=== PATIENT | female | born 1985 | race Caucasian/White ===

== ENCOUNTER 2021-08-20 06:12 | Inpatient (IN) | payer OTHER ==
[2021-08-20] VITALS (47 sets, daily range): BP systolic 93–140; BP diastolic 53–84
[~2021-08-20] VITALS: Ht 172.7 cm; Wt 118.5 kg
[2021-08-20] MEDS ORDERED: MINERAL OIL CONCENTRATE 99.9% 15 ML UDC TOP PRN (06:30)
--- NOTE | 2021-08-20 06:36 | History & Physical-OB ---
OB - Chief Complaint & HPI Date/Time Date of Admission: Date of Admission: Aug 20, 2021 at 06:12 Date seen by a Provider: Aug 20, 2021 Time Seen by a Provider: 08:40 Chief Complaint/History OB-Reason for Admission/Chief: Induction of Labor Hx : 3 Hx Para: 2 Expected Date of Delivery: Aug 22, 2021 Gestational Age in Weeks: 39 Gestational Age in Days: 5 Indication for induction: history of rapid labor History of Labs A+, antibody neg, RI. HIV/HepB/RPR NR, GC/chlamydia neg. 1 hour glucola abnormal, 3 hour normal. GBS neg. Allergies and Home Medications Allergies Coded Allergies: Penicillins (Verified Allergy, Unknown, hives, 08/20/21) Patient Home Medication List Home Medication List Reviewed: Yes Mecobalamin (B12 Active) 1,000 Mcg Tab.chew, 1,000 MCG PO DAILY, (Reported) Entered as Reported by: MAXX WILKINS on 08/20/21724 Last Action: New Order Vit W-Ca,Fe,FA(<1 mg) ( Formula) 1 Each Tablet, 1 EACH PO DAILY, (Reported) Entered as Reported by: MAXX WILKINS on 08/20/21723 Last Action: New Order Psyllium Husk/Aspartame (Metamucil Powder) 174 Gm Powder, 174 GM PO DAILY, (Reported) Entered as Reported by: MAXX WILKINS on 08/20/21724 Last Action: New Order OB - History Hx of Present Care: Yes Ultrasounds: Normal mid trimester US Obstetrical Complications: None Medical Complications: None Information Induced Hypertension: No Maternal Gestational Diabetes: No Hemorrhage: No Obstetrical History Hx : 3 Hx Para: 2 Hx # Term Pregnancies: 2 Hx # Pregnancies: 0 Number of Living Children: 2 Hx Multiple Gestation: No Hx Ectopic : No Hx Stillbirth: No Hx Complication: No Hx Induced Hypertens: No Hx Maternal Gestational Diabet: No Hx Hemorrhage: No Delivery History Hx Dystocia: No Hx Forceps Assisted Delivery: No Hx Vacuum Extraction Assisted: No Hx Placenta Abnormality: No Hx Distress: No Hx Large For Gestational Age I: No Hx Small for Gestational Age I: No Hx Section: No Hx Vaginal Delivery Post C-Sec: No Hx Blood Disorders: No Adverse Rxn to Tranfusion: No Patient Past Medical History PMHx: Denies SurgHx: appendectomy Social History/Family History Alcohol Use: Denies Use Recreational Drug Use: No Smoking Cessation: Never smoker Immunizations Influenza Vaccine Up-to-Date: Yes; Up-to-Date (05/14/2021) First/Initial COVID19 Vaccine: Sep 15, 2020 Second COVID19 Vaccination: October 16, 2020 COVID19 Booster (Date): June 18, 2021 COVID19 Vaccine [employer]: Moderna Tetanus Booster (TDap): Less than 5yrs Rubella: immune RPR/VDRL: Negative GBS Status: Negative HBsAG: Negative OB - Admission Exam Physical Exam HEENT: NCAT Abdomen: Non tender Extremities: Normal Cervical Dilatation: 3cm Effacement: 0% Station: -3 Membranes: Intact Accelerations: Accelerations Present Decelerations: No Decelerations Group Home Variability: Average (6-25) Contractions on Admission: None Garcia Scoring Tool (Modified) Dilation (cm): 1-2cm (1) Effacement (%): 0-30% (0) Descent/Station: -3 (0) Cervix Consistency: Soft (2) Cervix Position: Middle/Mid-Position (1) Add 1 point for: Each previous vaginal delivery (1) (2) Garcia Score: 6 OB - Assessment/Plan/Diagnosis Assessment Admission Dx Term intrauterine at 39w5d Obesity complicated Blood type A+ Rubella immune GBS negative History of rapid labor Induction of labor planned Admission Status: Inpatient Order (span 2 midnights) Reason for Inpatient Admission: Labor, delivery and course Plan Plan: Induction Induction Method: per Pitocin Protocol TERI POWELL MD Aug 20, 2021 06:36
[2021-08-20 07:23] LABS: BASOPHILS % (AUTO) 0 % (0-10); EOSINOPHILS # (AUTO) 0.1 10^3/uL (0.0-0.3); EOSINOPHILS % (AUTO) 1 % (0-10); HEMATOCRIT 38 % (35-52); HEMOGLOBIN 12.7 g/dL (11.5-16.0); LYMPHOCYTES # (AUTO) 1.9 10^3/uL (1.0-4.0); LYMPHOCYTES % (AUTO) 15 % (12-44); MEAN CORPUSCULAR HEMOGLOBIN 28 pg (25-34); MEAN CORPUSCULAR HGB CONC 33 g/dL (32-36); MEAN CORPUSCULAR VOLUME 84 fL (80-99); MEAN PLATELET VOLUME 10.3 fL (9.0-12.2); MONOCYTES # (AUTO) 1.2 10^3/uL (0.0-1.0); MONOCYTES % (AUTO) 10 % (0-12); NEUTROPHILS # (AUTO) 9.6 10^3/uL (1.8-7.8); NEUTROPHILS % (AUTO) 74 % (42-75); PLATELET COUNT 335 10^3/uL (130-400); WHITE BLOOD COUNT 13.1 10^3/uL (4.3-11.0)
[2021-08-20] MEDS ORDERED: PREN-8 PO (07:24)
[2021-08-20] MEDS ORDERED: MECO10005 PO (07:25)
[2021-08-20] MEDS ORDERED: PSYL174P2 PO (07:25)
[2021-08-20] MEDS: OXYTOCIN PRE-MIX DRIP 500 ML IV SCH (07:56)
[2021-08-20] MEDS: D5 LR IV SOLUTION 1,000 ML IV SCH ×3 (08:09→21:40)
[2021-08-20] MEDS ORDERED: CATHETER FLUSH 10 ML SYR IV SCH (14:00)
[2021-08-21] VITALS (29 sets, daily range): BP systolic 100–159; BP diastolic 53–94
[2021-08-21] MEDS: D5 LR IV SOLUTION 1,000 ML IV SCH (06:58)
[2021-08-21] MEDS: OXYTOCIN PRE-MIX DRIP 500 ML IV SCH (06:58)
[2021-08-21] MEDS ORDERED: fentaNYL 2 mcg/ml BUPIVA 0.125 100 ML ONE (08:38)
[2021-08-21] MEDS ORDERED: LACTATED RINGERS 1,000 ML IV ONE (08:38)
--- NOTE | 2021-08-21 08:43 | Labor Progress Note ---
Labor Progress Note Labor Progress Note Date Seen by Provider: Aug 21, 2021 Time Seen by Provider: 08:30 Subjective: Pt denies complaints. Objective: Cervical exam: 5-6/60/-3 Consistency: soft Position: anterior Presentation: vertex heart tones: 140 beats per minute, moderate variability, accels present Tocometer: 3 ctx/10 minutes Assessment/Plan: Bia Álvarez is a (36 /Para 3 / 2,Gestational Age (wks)39+6 here for induction of labor. CEFM/TOCO Continue pitocin/AROM done with clear fluid return Anesthesia: planning epidural Anticipate vaginal delivery. Vitals - Labs Vital Signs - I&O Vital Signs Date Time Temp Pulse Resp B/P (MAP) Pulse Ox O2 Delivery O2 Flow Rate FiO2 08/21/21 06:00 18 Room Air 08/21/21 05:00 18 Room Air 08/21/21 04:00 18 Room Air 08/21/21 03:00 18 Room Air 08/21/21 02:00 18 Room Air 08/21/21 01:00 18 Room Air 08/21/21 00:00 18 Room Air 08/20/21 23:00 18 Room Air 08/20/21 22:00 71 18 119/56 (77) Room Air 08/20/21 21:00 36.2 80 18 140/78 (98) Room Air 08/20/21 20:00 97 18 117/62 (80) Room Air 08/20/21 19:00 Room Air 08/20/21 18:45 75 20 116/65 (82) Room Air 08/20/21 18:30 72 20 126/76 (93) Room Air 08/20/21 18:15 36.7 83 20 125/80 (95) Room Air 08/20/21 18:00 81 20 123/81 (95) Room Air 08/20/21 17:45 72 20 122/71 (88) Room Air 08/20/21 17:30 65 20 104/58 (73) Room Air 08/20/21 17:15 68 20 102/57 (72) Room Air 08/20/21 17:00 68 20 113/57 (75) Room Air 08/20/21 16:45 65 20 94/54 (67) Room Air 08/20/21 16:30 64 20 97/53 (68) Room Air 08/20/21 16:15 73 20 99/60 (73) Room Air 08/20/21 16:00 86 20 111/65 (80) Room Air 08/20/21 15:45 67 20 93/55 (68) Room Air 08/20/21 15:30 75 20 119/67 (84) Room Air 08/20/21 15:15 73 20 114/67 (83) Room Air 08/20/21 15:00 68 20 107/68 (81) Room Air 08/20/21 14:45 36.1 69 20 116/71 (86) Room Air 08/20/21 14:30 88 20 122/56 (78) Room Air 08/20/21 14:15 75 20 123/70 (87) Room Air 08/20/21 14:00 90 20 109/65 (80) Room Air 08/20/21 13:45 71 20 112/77 (89) Room Air 08/20/21 13:30 73 20 126/83 (97) Room Air 08/20/21 13:15 76 20 127/80 (96) Room Air 08/20/21 13:00 85 20 125/80 (95) Room Air 08/20/21 12:45 76 20 106/66 (79) Room Air 08/20/21 12:30 68 20 114/70 (85) Room Air 08/20/21 12:15 71 20 111/67 (82) Room Air 08/20/21 12:00 71 20 122/73 (89) Room Air 08/20/21 11:45 36.0 69 20 120/72 (88) Room Air 08/20/21 11:30 68 20 117/73 (88) Room Air 08/20/21 11:15 75 20 118/74 (89) Room Air 08/20/21 11:00 72 20 122/79 (93) Room Air 08/20/21 10:45 76 20 120/78 (92) Room Air 08/20/21 10:30 72 20 116/70 (85) Room Air 08/20/21 10:00 36.2 71 20 113/76 (88) Room Air 08/20/21 09:45 74 20 111/79 (90) Room Air 08/20/21 09:30 75 20 114/61 (78) Room Air 08/20/21 09:15 71 20 133/83 (100) Room Air 08/20/21 09:00 73 20 127/71 (89) Room Air 08/20/21 08:45 73 20 127/71 (89) Room Air I & O 08/21/21 07:00 Intake Total 1000 ml Balance 1000 ml TERI POWELL MD Aug 21, 2021 08:43
[2021-08-21] MEDS ORDERED: BUPIVACAINE 0.25% 30 ML (SENSORCAINE) VIAL ONE (09:26)
[2021-08-21] MEDS ORDERED: fentaNYL INJ 100 MCG/2 ML AMP ONE (09:26)
--- NOTE | 2021-08-21 10:54 | Anesthesia-Regional Post-Op ---
Regional Patient Condition Mental Status: Alert, Oriented x3 Circulation: Same as Pre-Op Headache: Absent Sensation: Full Recovery Motor Block: Absent Post Op Complications Complications None Follow Up Care/Instructions Patient Instructions None needed. Anesthesia/Patient Condition Patient is doing well, no complaints, stable vital signs, no apparent adverse anesthesia problems. No complications reported per nursing. OLU DODSON CRNA Aug 21, 2021 10:54
[2021-08-21] MEDS ORDERED: METOCLOPRAMIDE INJ 10 MG/2 ML (REGLAN) IV PRN (11:00)
[2021-08-21] MEDS ORDERED: EPIDURAL (fentaNYL 2 MCG/ML BUPIVA 0.125%)100 ML BAG EPI PRN (11:00)
[2021-08-21] MEDS ORDERED: NALOXONE 0.4 MG/ML 1 ML (NARCAN) VIAL IV PRN ×2 (11:00)
[2021-08-21] MEDS ORDERED: LACTATED RINGERS 1,000 ML IV SCH (11:00)
[2021-08-21] MEDS ORDERED: diphenhydrAMINE 50 MG/ML INJ (BENADRYL) IV PRN (11:00)
[2021-08-21] MEDS ORDERED: ONDANSETRON 4 MG/2 ML (SDV) Z0FRAN IV PRN (11:00)
--- NOTE | 2021-08-21 11:17 | OB Labor & Delivery Record ---
Vag Delivery Note Vag Delivery Note Date of Delivery: 08/21/21 Preoperative Diagnosis: Bia Álvarez is a (36 /Para 3 / 2, Gestational Age (wks)39with 6 days Postoperative Diagnosis: Same Surgeon: TERI POWELL Aerial Advertiser: Nicole Foy, OMS4 Anesthesia: Epidural Delivery Type: Findings: Viable female , apgars 7/9, weight 8#8 Lacerations: bilateral periurethral abrasions Intact placenta with 3 vessel cord. Nuchal cord x 1 easily reduced, body cord or shoulder dystocia Estimated Blood Loss: 350 ml Complications: None Condition: Stable Description of Procedure: The patient is a 36 year old female who presented for induction of labor. She was admitted and informed consent was obtained. Her labor course was remarkable for failure to achieve active labor on day 1, she rested overnight and restated pitocin the next morning. She progressed to complete dilatation and began to push. She was then set up for delivery. The infant's head was delivered atraumatically in the KAYCEE position. The shoulders and remainder of the 's body were then delivered without difficulty. Upon delivery, the was placed on maternal abdomen and the mouth and nares were bulb suctioned. The cord was doubly clamped and cut and the was handed off to the pediatric staff. An intact placenta with 3-vessel cord delivered via Sally and there was found to be minimal bleeding.~ Vigorous fundal massage was performed and the fundus was found to be firm. IV oxytocin was given. Examination of the vagina and perineum revealed no lacerations requiring repair. Following the delivery, sponge, instrument and needle counts were correct. Mom and baby were both in stable condition in the labor suite. Vitals - Labs Vital Signs - I&O Vital Signs Date Time Temp Pulse Resp B/P (MAP) Pulse Ox O2 Delivery O2 Flow Rate FiO2 08/21/21 08:00 76 18 137/77 (97) Room Air 08/21/21 07:45 36.0 69 18 111/71 (84) Room Air 08/21/21 07:30 69 18 111/71 (84) Room Air 08/21/21 07:15 62 18 121/76 (91) Room Air 08/21/21 06:00 18 Room Air 08/21/21 05:00 18 Room Air 08/21/21 04:00 18 Room Air 08/21/21 03:00 18 Room Air 08/21/21 02:00 18 Room Air 08/21/21 01:00 18 Room Air 08/21/21 00:00 18 Room Air 08/20/21 23:00 18 Room Air 08/20/21 22:00 71 18 119/56 (77) Room Air 08/20/21 21:00 36.2 80 18 140/78 (98) Room Air 08/20/21 20:00 97 18 117/62 (80) Room Air 08/20/21 19:00 Room Air 08/20/21 18:45 75 20 116/65 (82) Room Air 08/20/21 18:30 72 20 126/76 (93) Room Air 08/20/21 18:15 36.7 83 20 125/80 (95) Room Air 08/20/21 18:00 81 20 123/81 (95) Room Air 08/20/21 17:45 72 20 122/71 (88) Room Air 08/20/21 17:30 65 20 104/58 (73) Room Air 08/20/21 17:15 68 20 102/57 (72) Room Air 08/20/21 17:00 68 20 113/57 (75) Room Air 08/20/21 16:45 65 20 94/54 (67) Room Air 08/20/21 16:30 64 20 97/53 (68) Room Air 08/20/21 16:15 73 20 99/60 (73) Room Air 08/20/21 16:00 86 20 111/65 (80) Room Air 08/20/21 15:45 67 20 93/55 (68) Room Air 08/20/21 15:30 75 20 119/67 (84) Room Air 08/20/21 15:15 73 20 114/67 (83) Room Air 08/20/21 15:00 68 20 107/68 (81) Room Air 08/20/21 14:45 36.1 69 20 116/71 (86) Room Air 08/20/21 14:30 88 20 122/56 (78) Room Air 08/20/21 14:15 75 20 123/70 (87) Room Air 08/20/21 14:00 90 20 109/65 (80) Room Air 08/20/21 13:45 71 20 112/77 (89) Room Air 08/20/21 13:30 73 20 126/83 (97) Room Air 08/20/21 13:15 76 20 127/80 (96) Room Air 08/20/21 13:00 85 20 125/80 (95) Room Air 08/20/21 12:45 76 20 106/66 (79) Room Air 08/20/21 12:30 68 20 114/70 (85) Room Air 08/20/21 12:15 71 20 111/67 (82) Room Air 08/20/21 12:00 71 20 122/73 (89) Room Air 08/20/21 11:45 36.0 69 20 120/72 (88) Room Air 08/20/21 11:30 68 20 117/73 (88) Room Air 08/20/21 11:15 75 20 118/74 (89) Room Air I & O 08/21/21 07:00 Intake Total 1000 ml Balance 1000 ml TERI POWELL MD Aug 21, 2021 11:17
[2021-08-21] MEDS ORDERED: WITCH HAZEL(TUCKS) 40 EA JAR TOP PRN (11:45)
[2021-08-21] MEDS ORDERED: BENZOCAINE/MENTHOL (DERMOPLAST) 56 ML CAN TP PRN (11:45)
[2021-08-21] MEDS ORDERED: OXYTOCIN PRE-MIX DRIP 500 ML IV SCH (11:45)
[2021-08-21] MEDS ORDERED: CATHETER FLUSH 10 ML SYR IV SCH (14:00)
[2021-08-21] MEDS: IBUPROFEN 600 MG (MOTRIN) TAB PO SCH (18:53)
[2021-08-22] MEDS: DOCUSATE SODIUM 100 MG (COLACE) CAP PO SCH ×2 (00:27→10:28)
[2021-08-22] MEDS: IBUPROFEN 600 MG (MOTRIN) TAB PO SCH ×3 (00:27→13:36)
[2021-08-22] MEDS ORDERED: IBUP-844 PO (04:53)
[2021-08-22 05:11] VITALS: BP 116/72
[2021-08-22] MEDS ORDERED: PRENATAL VITAMIN 1 EA TAB PO SCH (07:00)
[2021-08-22 07:28] LABS: BASOPHILS # (AUTO) 0.1 10^3/uL (0.0-0.1); BASOPHILS % (AUTO) 0 % (0-10); EOSINOPHILS # (AUTO) 0.1 10^3/uL (0.0-0.3); EOSINOPHILS % (AUTO) 1 % (0-10); HEMATOCRIT 33 % (35-52); HEMOGLOBIN 10.8 g/dL (11.5-16.0); LYMPHOCYTES # (AUTO) 2.7 10^3/uL (1.0-4.0); LYMPHOCYTES % (AUTO) 18 % (12-44); MEAN CORPUSCULAR HEMOGLOBIN 28 pg (25-34); MEAN CORPUSCULAR HGB CONC 33 g/dL (32-36); MEAN CORPUSCULAR VOLUME 86 fL (80-99); MEAN PLATELET VOLUME 10.3 fL (9.0-12.2); MONOCYTES # (AUTO) 1.2 10^3/uL (0.0-1.0); MONOCYTES % (AUTO) 8 % (0-12); NEUTROPHILS # (AUTO) 11.3 10^3/uL (1.8-7.8); NEUTROPHILS % (AUTO) 73 % (42-75); PLATELET COUNT 271 10^3/uL (130-400); WHITE BLOOD COUNT 15.5 10^3/uL (4.3-11.0)
[2021-08-22] MEDS ORDERED: FERR-74 PO (08:26)
--- NOTE | 2021-08-22 08:26 | Discharge Summary ---
Discharge Summary Hospital Course Hospital Course Date of Admission: Aug 20, 2021 at 06:12 Admission Diagnosis : Induction of labor at 39w5d Obesity complicating blood type A+ Rubella immune GBS negative Family Physician/Provider: Teri Rosenbaum MD Date of Discharge: 08/22/21 Discharge Diagnosis: s/p spontaneous vaginal delivery with no lacerations acute blood loss anemia, asymptomatic Hospital Course: Pt admitted for induction of labor, had pitocin all day on day 1 with change onl y to 4-5 cm and head not well applied, so pitocin was held overnight and resumed the next day, after which she dilated to 5-6 cm and was well applied, SROM done and delivered within a couple of hours. Uncomplicated course. Labs and Pending Lab Test: Laboratory Tests 08/22/21 07:10: White Blood Count 15.5H, Red Blood Count 3.83, Hemoglobin 10.8L, Hematocrit 33L, Mean Corpuscular Volume 86, Mean Corpuscular Hemoglobin 28, Mean Corpuscular Hemoglobin Concent 33, Red Cell Distribution Width 13.6, Platelet Count 271, Mean Platelet Volume 10.3, Immature Granulocyte % (Auto) 1, Neutrophils (%) (Auto) 73, Lymphocytes (%) (Auto) 18, Monocytes (%) (Auto) 8, Eosinophils (%) (Auto) 1, Basophils (%) (Auto) 0, Neutrophils # (Auto) 11.3H, Lymphocytes # (Auto) 2.7, Monocytes # (Auto) 1.2H, Eosinophils # (Auto) 0.1, Basophils # (Auto) 0.1, Immature Granulocyte # (Auto) 0.1, Neutrophils % (Manual) [Pending] Home Meds Active Ibu (Ibuprofen) 600 Mg Tablet 600 Mg PO Q6HR PRN Reported B12 Active (Mecobalamin) 1,000 Mcg Tab.chew 1,000 Mcg PO DAILY Metamucil Powder (Psyllium Husk/Aspartame) 174 Gm Powder 174 Gm PO DAILY Formula ( Vit W-Ca,Fe,FA(<1 mg)) 1 Each Tablet 1 Each PO DAILY Assessment/Pt DC Instructions Follow up with Dr. Rosenbaum in 6 weeks for visit. Discharge Diet: Regular Diet Activity as Tolerated: Yes (avoid strenuous activity x 6 weeks) Discharge Physical Examination Allergies: Coded Allergies: Penicillins (Verified Allergy, Unknown, hives, 08/20/21) General Appearance: No Apparent Distress, WD/WN Respiratory: Lungs Clear, Normal Breath Sounds Cardiovascular: Regular Rate, Rhythm, No Murmur Gastrointestinal: Other (fundus firm at umbilicus, non-tender) Extremity: Other (trace pitting edema bilaterally) Skin: Normal Color Neurologic/Psychiatric: Alert, Normal Mood/Affect TERI ROSENBAUM MD Aug 22, 2021 08:25
[2021-08-22 08:39] LABS: BAND NEUTROPHILS 3 %; BASOPHILS % (MANUAL) 0 %; EOSINOPHILS % (MANUAL) 0 %; LYMPHOCYTES % (MANUAL) 20 %; MONOCYTES % (MANUAL) 8 %; NEUTROPHILS % (MANUAL) 69 %; RBC MORPH NORMAL
[2021-08-22 10:24] VITALS: BP 112/58
[2021-08-22 13:00] VITALS: BP 124/71
[2021-08-22 13:36] VITALS: BP 124/71
== END 2021-08-22 14:50 | disposition home or self-care (01) | DRG 806 ==
LOC: LDRP 06:12
PROVIDERS: ADMIT Family Medicine; ATTEND Family Medicine
PROC: 10E0XZZ Delivery of Products of Conception, External Approach (ICD-10-PCS; principal; 2021-08-21)
PROC: 10907ZC Drainage of Amniotic Fluid, Therapeutic from Products of Conception, Via Natural or Artificial Opening (ICD-10-PCS; 2021-08-21)
PROC: 0UQMXZZ Repair Vulva, External Approach (ICD-10-PCS; 2021-08-21)
DX: O99.214 Obesity complicating childbirth (principal); D62 Acute posthemorrhagic anemia; Z37.0 Single live birth; Z3A.39 39 weeks gestation of pregnancy; O69.81X0 Labor and delivery complicated by cord around neck, without compression, not applicable or unspecified; O71.82 Other specified trauma to perineum and vulva; O90.81 Anemia of the puerperium
CPT/HCPCS: 36415; 85007; 85025; 85027; 86850; 86900; 86901